=== PATIENT | male | born 1980 | race Two or more races ===

== ENCOUNTER 2022-07-04 15:44 | Emergency (ER) | payer OTHER ==
[~2022-07-04] VITALS: Ht 180.3 cm; Wt 90.7 kg
[2022-07-04] MEDS ORDERED: TAMS0.4C PO (21:55)
[2022-07-04] MEDS ORDERED: CIPRO500 MG PO (21:55)
[2022-07-04] MEDS ORDERED: KETO10TA2 PO (21:55)
== END 2022-07-04 22:22 | disposition home or self-care (01) ==
LOC: ER 15:44
DX: N20.1 Calculus of ureter (principal); Z20.822 Contact with and (suspected) exposure to COVID-19